=== PATIENT | female | born 1955 | race Caucasian/White ===

== ENCOUNTER → 2021-05-08 09:03 | Outpatient (CLI) | payer MEDICARE, OTHER, SELFPAY ==
[2021-05-08 17:56] LABS: SARS-CoV-2 RNA PCR Negative
== END ==
PROVIDERS: PCP Internal Medicine; Visit Provider Internal Medicine
DX: Z20.822 Contact with and (suspected) exposure to COVID-19 (principal)
CPT/HCPCS: C9803; U0003; U0005

== ENCOUNTER 2024-07-31 11:02 | Emergency (ER) | payer OTHER, SELFPAY ==
--- NOTE | ~2024-07-31 | XR_ITS ---
EXAMINATION: XR ankle RT min 3V DATE: 07/31/2024 11:22 INDICATION: Lateral right ankle pain post injury TECHNIQUE: Anteroposterior, oblique, mortise, and lateral views of the right ankle were obtained. COMPARISON: None. FINDINGS: Nondisplaced avulsion fracture at the tip of the lateral malleolus. No other fractures identified. Claudia int spaces are normal. Small plantar calcaneal spur. Soft tissue swelling about the ankle most promin ent about the lateral malleolus. No ankle joint effusion. IMPRESSION: 1. Nondisplaced avulsion fracture at the tip of the lateral malleolus. Reviewed, dictated and finalized at location A.
--- NOTE | 2024-07-31 11:08 | ED.LOWEXIN ---
HPI - Extremity Injury (Lower) General Chief Complaint: Extremity Injury, Lower Stated Complaint: Right Ankle Pain Time Seen by Provider: 07/31/24 11:21 Source: patient Mode of arrival: ambulatory Limitations: no limitations History of Present Illness HPI Narrative: Patient presents to the clinic with complaints of decreased ROM and pain to right lateral ankle since . She was mushroom hunting, and rolled it while walking down a hill. She has been resting, elevating, and using OTC pain medication with minimal relief. Denies numbness, tingling, or radation of pain. Related Data Allergies Allergy/AdvReac Type Severity Reaction Status Date / Time Sulfa (Sulfonamide Allergy Severe RASH Verified 06/03/24 13:11 Antibiotics) Review of Systems Review of Systems: CONSTITUTIONAL: Denies body aches, fever, chillsEYES: Denies visual changes ENT: Denies rhinorrhea, congestion CARDIOVASCULAR: Denies chest pain, palpitations, or edema. RESPIRATORY: Denies cough or dyspnea. SKIN: Denies rash, itching, or wounds. MUSCULOSKELETAL: reports right lateral ankle pain. NEUROLOGIC: Denies headache, numbness, tingling, or weakness. All systems reviewed & are unremarkable except as noted in HPI and below PMFSH Past Medical History Medical History Renal insufficiency Vitamin B12 deficiency Breast ductal hyperplasia, atypical Surgical History Surgical History History of appendectomy History of breast biopsy 1980 Social History Social History Social History: 05/30/24 very confident with medical forms. Smoking status: Never smoker Alcohol intake: current Alcohol use details: social Substance use: never Substance use type: does not use Do You Feel Safe in your Home?: Yes Lack of Transportation: No Lack of Food: Never True Current Housing: I Have Housing Concerned About Future Housing: No Difficulty Paying Gas/Electric Bills: No Difficulty Paying for Meds: No Currently Unemployed: No Education: Decline to Answer Difficulty w/ Childcare or Family Care: No Living arrangements: with family Occupation/Education: retired Gender identity (if verbalized by the patient): Female Sexual Orientation (if Verbalized by the Patient): Straight or Heterosexual Comments At time of signature, I have reviewed and agree with nursing past medical, surgical, social and family history unless otherwise noted. Please see nursing chart for further information. There is no relevant family history pertinent to the presenting complaint. Exam Narrative: MUSCULOSKELETAL EXAM GENERAL: Well-appearing, well-nourished, and in no acute distress. HEAD: Normocephalic, atraumatic. NECK: Supple. CHEST: Speaks in full sentences. No respiratory distress. HEART: Regular rate and rhythm. Normal and equal peripheral pulses. EXTREMITIES: Right ankle has decreased strength but normal sensation, decreased range of motion with flexion/extension/rotation, and endorses pain with movement. Edema noted without ecchymosis, point tenderness to lateral ankle. No open wounds, skin tenting, or obvious deformity; alignment normal, pulse palpable and equal bilaterally, skin warm, dry, pink. Capillary refill less than 3 seconds. Distal sensation intact. SKIN: Warm, dry, no rash. NEURO: Alert and oriented x3. PSYCH: Normal mood and affect Course Course Level of Care: Express Care Visit Vital Signs Vital signs: Vital Signs Temperature 97.5 F L 07/31/24 11:09 Pulse Rate 61 07/31/24 11:09 Respiratory Rate 16 07/31/24 11:09 Blood Pressure 124/64 07/31/24 11:09 Pulse Oximetry 100 07/31/24 11:09 Temperature 97.5 F L 07/31/24 11:09 Pulse Rate 61 07/31/24 11:09 Respiratory Rate 16 07/31/24 11:09 Blood Pressure 124/64 07/31/24 11:09 Pulse Oximetry 100 07/31/24 11:09 Reviewed MDM - Extremity Injury (Lower) MDM Narrative Medical decision making narrative: Discussed physical exam findings and xray. Shared decision making, patient prefers walking boot. Follow up with Ortho. Referral given. Advise supportive measures and signs/symptoms to go to the ER. Pt is appropriate for outpatient treatment and follow up. Differential Diagnosis Differential diagnosis: Likely ankle sprain and strain and ankle fracture Lab Data Labs: ITS Impressions Ankle X-Ray 07/31/24 11:29 IMPRESSION: 1. Nondisplaced avulsion fracture at the tip of the lateral malleolus. Critical Care Time Critical Care Time Critical Care Time: No Discharge Plan Discharge Clinical Impression: Ankle fracture, right Qualifiers: Encounter type: initial encounter Fracture type: closed Qualified Code(s): S82.891A - Other fracture of right lower leg, initial encounter for closed fracture Patient Disposition: Home Condition: Stable Instructions: Ankle Fracture (ED) Additional Instructions: Be sure to purchase and use walking boot. Rest, ice and elevate the affected extremity. Motrin 600mg every 8 hours, as needed, for pain (take with food). Tylenol 1000mg every 8 hours. Keep splint clean, dry and in place. Use garbage bag while showering to keep splint dry. Go to the ER immediately for increased pain, tingling/numbness, swelling, redness, and fever. Follow up with Orthopedic Surgery in 1-2 days for further evaluation - please call Thursday for an appointment. Patient Language: Yakut Prescriptions: No Action phentermine 37.5 mg tablet 37.5 mg PO DAILY Qty: 30 0RF Rx Instructions: must administer 30 minutes before or 1-2 hours after breakfast tolterodine [Detrol LA] 2 mg capsule,extended release 24hr 2 mg PO DAILY Qty: 30 0RF Follow-up/Referrals: Ronaldo Spears MD [Physician] - PHYSICIAN,STREET LIGHT SERVICER SUPERVISOR [Primary Care Provider] - Time of Disposition: 11:42
[2024-07-31 11:09] VITALS: BP 124/64; PULSE 61; RESP 16; TEMP 36.4; O2SAT 100
== END 2024-07-31 11:46 | disposition home or self-care (01) ==
DX: S82.64XA Nondisplaced fracture of lateral malleolus of right fibula, initial encounter for closed fracture (principal); X50.9XXA Other and unspecified overexertion or strenuous movements or postures, initial encounter
CPT/HCPCS: 73610; 99214; G0463

== ENCOUNTER 2025-01-05 01:00 | Day surgery (SDC) | payer OTHER, SELFPAY ==
[2025-01-02 11:56] VITALS: BMI 26.6
--- OUTSIDE RECORDS SUMMARY | 2025-01-05 01:03 | XMS_ITS | Clinical Summary ---
Author Organization [facility] Address [facility] [place] [address] Care Team Providers Care Human Service Specialist Name Role Phone Michelle Bruner PA-C Primary Care Provider [phone] Immunizations Immunization Administration Dates Next Due MODERNA COVID-19 (12+) MRNA, LNP-S, PF, 100 MCG/ 0.5 ML DOSE 05/01/2020,04/03/2020 Social History Tobacco Use Types Packs/Day Years Used Date Smoking Tobacco: Never Assessed Comments Unknown Sex and Gender Information Value Date Recorded Sex Assigned at Not on file Legal Sex Female 7:58 PM CDT Gender Identity Not on file Sexual Orientation Not on file Plan of Treatment Health Maintenance Due Date Last Done Comments Colorectal Cancer Screening Colonoscopy (10 Years) 1955 Hepatitis C 1973 DTaP, Tdap and Td Vaccines ( 1 - Tdap) 1974 Mammogram Screening 1995 Pneumococcal Vaccine: 50+ Years (1 of 1 - PCV) 2005 Zoster Vaccines (1 of 2) 2005 Annual Medicare Wellness Visit 02/04/2020 COVID-19 Vaccine (3 - 2024-2 6 season) 2024 05/01/2020, 04/03/2020 RSV Immunization or 60+ Years (1 - 1-dose 75+ series) 2030 Dexa Scan (General) Completed 02/05/2023 Meningococcal B Vaccine Aged Out No l onger eligible based on patient's age to complete this topic Meningococcal Vaccine Aged Out No janette mariely eligible based on patient's age to complete this topic RSV Immunizations Under 20 Months Aged Out No longer eligible b ased on patient's age to complete this topic Procedures Procedure Name Priority Date/Time Associated Diagnosis Comments BONE DENSITY/DEXA Routine 02/05/2023 11: 13 AM CDT Other primary ovarian failure from Last 3 Months or Most Recently Relevant to Health Maintenance Results * BONE DENSITY/DEXA (02/05/2023 11:13 AM CDT) Anatomical Region Laterality Modality Bone Bone Density 02/07/2023 8:47 AM CDT Impressions 02/07/2023 8:48 AM CDT IMPRESSION:===== The patient bone mineral density is Normal according to the World Health Organization (WHO) criteria. Referred By: MICHELLE BRUNER Interpreted By: Brian Lam MD, 02/07/2023 8:47 AM Narrative 02/07/2023 8:48 AM CDT EXAMINATION: Bone Density Axial EXAM DATE/TIME: 02/05/2023 10:55 AM REASON FOR EXAM: Postmenopausal status COMPARISON: None FINDINGS: DEXA bone densitometry The bone mineral density (BMD) was determined by dual-energy x-ray absorptiometry, the results are as follows: AP Lumbar Spine L1 through L4 BMD Patient (GM/SQCM): 1.070 T-Score (Standard deviations from young adult peak bone density): 0.2 and a Z- Score of 2.2. Scoliosis and osteoarthritis may falsely increase bone mineral density measured in the lumbar spine. Right femoral neck: BMD Patient (GM/SQCM): 0.741 T-Score (Standard deviations from young adult peak bone density): -1.0 and a Z- Score of 0.7. Total right 0.907 hip: BMD Patient (GM/SQCM): -0.3 T-Score (Standard deviations from young adult peak bone density): 1.1 and a Z- Score of . 10 year fracture risk using FRAX, fracture risk assessment tool: Not reported as All T scores are at or above -1.0 ===== Procedure Note Brian Lam MD - 02/07/2023 EXAMINATION: Bone Density Axial EXAM DATE/TIME: 02/05/2023 10:55 AM REASON FOR EXAM: Postmenopausal status COMPARISON: None FINDINGS: DEXA bone densitometry The bone mineral density (BMD) was determined bydual-energy x-ray absorptiometry, the results are as follows: AP Lumbar Spine L1 through L4 BMD Patient (GM/SQCM): 1.070 T-Score (Standard deviations from young adult peak bonedensity): 0.2 and a Z- Score of 2.2. Scoliosis and osteoarthritis mayfalsely increase bone mineral density measured in the lumbar spine. Right femoral neck: BMD Patient (GM/SQCM): 0.741 T-Score (Standard deviations from young adult peak bonedensity): -1.0 and a Z- Score of 0.7. Total right 0.907 hip: BMD Patient (GM/SQCM): -0.3 T-Score (Standard deviations from young adult peak bonedensity): 1.1 and a Z- Score of . 10 year fracture risk using FRAX, fracture risk assessment tool: Not reported as All T scores are at or above -1.0 ===== IMPRESSION:===== The patient bone mineral density is Normal according to the World Health Organization (WHO) criteria. Referred By: MICHELLE BRUNER Interpreted By: Brian Lam MD, 02/07/2023 8:47 AM Michelle Bruner PA-C DEXA Final Resu lt from Last 3 Months or Most Recently Relevant to Health Maintenance Insurance Care Teams Human Service Specialist Relationship Specialty Start Date End Date Michelle Bruner PA-C [address] [place], [place] [address] [place] [address] PCP - General PHYSICIAN SURGICAL APPLIANCE FITTER 02/05/23
--- OUTSIDE RECORDS SUMMARY | 2025-01-05 01:03 | XMS_ITS | Clinical Summary ---
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 Family History Medical History Relation Name Comments Uterine cancer Mother Family histor y of malignant neoplasm of uterus - (Added by TW Conv) Relation Name Status Comments Mother Social History Tobacco Use Types Packs/Day Years Used Date Smoking Tobacco: Never Smokeless Tobacco: Never Alcohol Use Standard Drinks/Week Comments Defer 0 (1 standard drink = 0.6 oz pur e alcohol) Comments No Sex and Gender Information Value Date Recorded Sex Assigned at Not on file Legal Sex Female 3:50 PM CIVIL TECHNICIAN Gender Identity Not on file Sexual Orientation Not on file Obstetrics History Last Filed Vital Signs Vital Sign Reading Time Taken Comments Blood Pressure - - Pulse - - Temperature - - Respiratory Rate - - Oxygen Saturation - - Inhaled Oxygen Concentration - - Weight 79.4 kg (175 lb) 04/22/2024 10:03 AM CIVIL TECHNICIAN Height 175.3 cm (5' 9) 04/22/2024 10:03 AM CIVIL TECHNICIAN Body Mass Index 25.84 04/22/2024 10:03 AM CIVIL TECHNICIAN Plan of Treatment Health Maintenance Due Date Last Done Comments Colon Cancer Screening-Colonoscopy 1955 Depression Screening 1955 Fall Risk Assessment 1955 Hepatitis C Screening 1955 DTaP/Tdap/Td Vaccine (1 - Tdap) 1966 Hepatitis B Screening 1973 Pneumococcal vaccine 65+ (1 of 1 - PCV) 2005 Zoster Vaccine (1 of 2) 2005 Well Visit 65+ 02/04/2020 Covid-19 Vaccine (3 - 2024-2 6 season) 2024 05/01/2020, 04/03/2020 Influenza Vaccine (#1) 2024 Osteoporosis Screening-Bone Density Scan 02/05/2025 02/05/2023 Breast Cancer Screening-Mammogram 04/22/2025 04/22/2024, 04/13/2023, 03/26/2022, Additional history exists Procedures Procedure Name Priority Date/Time Associated Diagnosis Comments SCREENING MAMMOGRAM BILATERAL W DULCE Schedule Routine, Read Routine (OP Routine) 04/22/2024 10:28 AM CIVIL TECHNICIAN Breast cancer screening, high risk patient from Last 3 Months or Most Recently Relevant to Health Maintenance Results * Screening Mammogram Bilateral W [place] (04/22/2024 10:28 AM CIVIL TECHNICIAN) Anatomical Region Laterality Modality Breast Bilateral Mammography Narrative 04/22/2024 2:24 PM CIVIL TECHNICIAN Mammogram Technique: Bilateral Digital Breast Tomosynthesis, Bilateral C-view 2D Screening mammogram. Views obtained: bilateral craniocaudal and bilateral mediolateral oblique. Computer Aided Detection was performed. Mammogram Findings: The present examination has been compared to prior imaging studies performed at [facility] on 10/17/2020, 03/26/2022 and 04/13/2023. There are scattered areas of fibroglandular density. There is no suspicious abnormality in either breast. Impression: There is no mammographic evidence of malignancy. Annual screening mammography is recommended. OVERALL FINAL ASSESSMENT: BI-RADS CATEGORY 1: Negative. Procedure Note Nikole Glynn MD - 04/22/2024 Mammogram Technique: Bilateral Digital Breast Tomosynthesis, Bilateral C-view 2D Screening mammogram. Views obtained: bilateral craniocaudal and bilateral mediolateral oblique. Computer Aided Detection was performed. Mammogram Findings: The present examination has been compared to prior imaging studies performed at [facility] on 10/17/2020, 03/26/2022 and 04/13/2023. There are scattered areas of fibroglandular density. There is no suspicious abnormality in either breast. Impression: There is no mammographic evidence of malignancy. Annual screening mammography is recommended. OVERALL FINAL ASSESSMENT: BI-RADS CATEGORY 1: Negative. Mervat Sanchez NP IMG MAMMO PROCEDURES Final Result from Last 3 Months or Most Recently Relevant to Health Maintenance Insurance [facility] MEDICARE [facility] MEDICARE [employer] Care Teams Machine Specialist Relationship Specialty Start Date End Date Michelle Bruner PA [address] [place] [address] [phone] PCP - General Family Practice 03/21/22
[2025-01-05 06:15] VITALS: BMI 26.5
[2025-01-05 06:16] VITALS: BP 130/82; PULSE 66; RESP 16; TEMP 36.4; O2SAT 99
[2025-01-05] MEDS: LACTATED RINGERS 1,000 ML 150 ML IV CONT (06:28)
--- NOTE | 2025-01-05 06:50 | P.PNAN_ITS ---
Anes - Initial Pre Proc Eval Procedure: Operation Date: 01/05/25 07:30 Proposed Procedures p Screening Colonoscopy - Sj Garcia MD Date/Time: 01/05/25 06:50 Surgeon: Sj Garcia MD Pre Op Diagnosis: SCREENING/POSITIVE COLOGUARD Patient Data Age: 69 Gender: F Height: 1.75 m Weight: 81.5 kg Last Vital Signs Temp 36.4 C L 01/05/25 06:16 Pulse 66 01/05/25 06:16 Resp 16 01/05/25 06:16 BP 130/82 01/05/25 06:16 Pulse Ox 99 01/05/25 06:16 O2 Del Method Room Air 01/05/25 06:16 Allergies Allergy/AdvReac Type Severity Reaction Status Date / Time Sulfa (Sulfonamide Allergy Severe RASH Verified 01/05/25 06:14 Antibiotics) Home Medications ?Medication ?Instructions ?Recorded ?Confirmed ?Type tolterodine 2 mg capsule,extended 2 mg PO DAILY #30 ca ps 12/02/22 01/02/25 Rx release 24 hr (Detrol LA) clotrimazole-betamethasone 1 1 applic topical BID 2 we eks #45 12/27/24 01/02/25 Rx %-0.05 % topical cream grams Patient hx anesthesia problems: none Family hx anesthesia problems: none Results Review: All pre-operative results and documents have been reviewed as part of the pre- operative evaluation. [facility] Past Medical History Medical History (Updated 12/27/24 @ 23:55 by Michelle Bruner PA-C) Closed fracture of right distal fibula (08/03/24) healed Vitamin B12 deficiency Breast ductal hyperplasia, atypical Surgical History Surgical History History of appendectomy History of breast biopsy 1980 Family History Family History Mother Diabetes mellitus Cancer Social History Social History Social History: 05/30/24 very confident with medical forms. 12/27/24 patient declined SDOH Smoking status: Never smoker Alcohol intake: current Drinks per week: 2 Alcohol use details: social Substance use: never Substance use type: does not use Do You Feel Safe in your Home?: Yes Lack of Transportation: No Lack of Food: Never True Current Housing: I Have Housing Concerned About Future Housing: No Difficulty Paying Gas/Electric Bills: No Difficulty Paying for Meds: No Currently Unemployed: No Education: Decline to Answer Difficulty w/ Childcare or Family Care: No Living arrangements: with family Occupation/Education: retired Gender identity (if verbalized by the patient): Female Sexual Orientation (if Verbalized by the Patient): Straight or Heterosexual Spiritual care concerns: No Anes - Eval Final PreProcedure Day of Procedure 01/05/25 06:50 Patient weight: overweight Heart: regular rate and rhythm Lungs: clear to auscultation Airway: Mallampati scale class II Neurological: alert and oriented Last oral intake: >/= 8 hours ASA classification: II Emergent: no Anesthetic plan: proceed Anesthesia type and monitoring: general GIVS and standard monitoring Results Review: All pre-operative results and documents have been reviewed as part of the pre- operative evaluation. Informed Consent: The patient's anesthetic plan and its attendant risks and benefits were discussed with the patient/family/POA. Questions were solicited and answers provided to the satisfaction of the patient/family/POA.
--- NOTE | 2025-01-05 07:32 | P.HP_ITS ---
H&P: HPI History of Present Illness Date/Time: 01/05/25 07:32 Chief Complaint: screening colonoscopy Narrative: This is the patient's first colonoscopy after 12 years. There are no GI symptoms and there is no family history of colorectal cancer. Review of Systems Review of Systems: All systems reviewed & are unremarkable except as noted in HPI and below PMFSH Past Medical History Medical History (Updated 01/05/25 @ 07:33 by Sj Garcia MD) Closed fracture of right distal fibula (08/03/24) healed Vitamin B12 deficiency Breast ductal hyperplasia, atypical Surgical History Surgical History (Reviewed 12/27/24 @ 13:08 by Hilda Tejada [facility]) History of appendectomy History of breast biopsy 1979 Family History Family History Mother Diabetes mellitus Cancer Social History Social History Social History: 05/30/24 very confident with medical forms. 12/27/24 patient declined SDOH Smoking status: Never smoker Alcohol intake: current Drinks per week: 2 Alcohol use details: social Substance use: never Substance use type: does not use Do You Feel Safe in your Home?: Yes Lack of Transportation: No Lack of Food: Never True Current Housing: I Have Housing Concerned About Future Housing: No Difficulty Paying Gas/Electric Bills: No Difficulty Paying for Meds: No Currently Unemployed: No Education: Decline to Answer Difficulty w/ Childcare or Family Care: No Living arrangements: with family Occupation/Education: retired Gender identity (if verbalized by the patient): Female Sexual Orientation (if Verbalized by the Patient): Straight or Heterosexual Spiritual care concerns: No Meds Home Medications and Allergies Home Medications ?Medication ?Instructions ?Recorded ?Confirmed ?Type tolterodine 2 mg capsule,extended 2 mg PO DAILY #30 ca ps 12/02/22 01/02/25 Rx release 24 hr (Detrol LA) clotrimazole-betamethasone 1 1 applic topical BID 2 we eks #45 12/27/24 01/02/25 Rx %-0.05 % topical cream grams Allergies Allergy/AdvReac Type Severity Reaction Status Date / Time Sulfa (Sulfonamide Allergy Severe RASH Verified 01/05/25 06:14 Antibiotics) Vital Signs Vital Signs - 24 hr 01/05/25 06:16 Temperature 97.5 F L Pulse Rate 66 Respiratory Rate 16 Blood Pressure 130/82 Pulse Oximetry 99 Oxygen Delivery Room Air Exam Const: General: cooperative and healthy appearing Resp: Effort & Inspection: normal respiratory effort and able to speak in complete sentences Auscultation: clear to auscultation bilaterally Cardio: Rate: regular rate Rhythm: regular rhythm GI: Inspection: normal to inspection GI Palp: No No hepatosplenomegaly present Auscultation: normal bowel sounds Rectal Exam: deferred Skin: General skin exam: normal color Psych: Appearance: grossly normal Mental Status: mental status grossly normal Assessment and Plan Assessment and plan (1) Encounter for screening colonoscopy: Code(s): Z12.11 - Encounter for screening for malignant neoplasm of colon Status: Acute Assessment and Plan: The patient is deemed a good candidate for the procedure. Consent signed. Will proceed.
--- NOTE | 2025-01-05 07:42 | S_PTH ---
PATIENT: Lisa Lehman LOC: [facility]#:[id number] AGE/SX: 69/F ROOM: RE01/05/[address]: Sj Garcia MD : 1955 BED: DIS: 01/05/2025 SPEC #: [id number] RECD: 01/05/25 08:21 STATUS: [place] REQ #: [id number] MAXX: 01/05/25 07:[address]: Sj Garcia DEPT: [facility] Surgical RECD BY: Michelle Alejandro MLT, ([facility]) ENTERED: 01/05/25 08:22 SP TYPE: Surgical OTHR DR: Michelle Bruner PA-C Tissues: A - Colon Polypectomy B - Colon Polypectomy Procedures: Hematoxylin and Eosin Stain Gross and Microscopic Level 4
[2025-01-05 07:56] VITALS: BP 102/58; PULSE 53; RESP 17; O2SAT 96
[2025-01-05 08:06] VITALS: BP 103/59; PULSE 55; RESP 16; O2SAT 93
[2025-01-05 08:16] VITALS: BP 125/71; PULSE 52; RESP 20; O2SAT 100
== END 2025-01-05 08:25 | disposition home or self-care (01) ==
PROVIDERS: PCP Physician Assistant Medical; Referring Provider Physician Assistant Medical; Visit Provider Internal Medicine Gastroenterology
PROC: 0DJD8ZZ Inspection of Lower Intestinal Tract, Via Natural or Artificial Opening Endoscopic (ICD-10-PCS; CPT 45378; principal; 2025-01-05 07:30)
DX: Z12.11 Encounter for screening for malignant neoplasm of colon (principal); D12.5 Benign neoplasm of sigmoid colon; D12.2 Benign neoplasm of ascending colon; K57.30 Diverticulosis of large intestine without perforation or abscess without bleeding; E53.8 Deficiency of other specified B group vitamins; Z98.890 Other specified postprocedural states; Z80.9 Family history of malignant neoplasm, unspecified
CPT/HCPCS: 45385; 88305; J2003; J2704; J7120